=== PATIENT | female | born 1990 | race Caucasian/White ===

== ENCOUNTER 2022-12-10 11:25 | Emergency (ER) | payer OTHER, SELFPAY ==
[2022-12-10 11:28] VITALS: BP 120/78; PULSE 100; RESP 18; TEMP 37.1; O2SAT 100
[2022-12-10 11:49] LABS: Basophils Percent Auto 0.2 % (0.2-1.2); Eosinophils Absolute Auto 0.4 K/mm3 (0-0.3); Hematocrit 39.5 % (37.0-47.0); Hemoglobin 12.3 g/dL (12.0-15.0); Immature Granulocyte Absolute 0.04 K/mm3 (0.00-0.031); Immature Granulocyte Percent A 0.4 % (0-0.5); Lymphocytes Absolute Auto 1.36 K/mm3 (0.9-3.2); Mean Corpuscular HGB Conc 31.1 g/dl (32-36); Mean Corpuscular Hemoglobin 25.6 pg (26-34); Mean Corpuscular Volume 82.3 fl (80-100); Mean Platelet Volume 9.8 fl (7.4-10.4); Monocytes Absolute Auto 0.6 K/mm3 (0.1-0.6); Monocytes Percent Auto 5.7 % (2.6-8.5); Neutrophils Absolute Auto 7.4 K/mm3 (1.3-6.7); Neutrophils Percent Auto 75.7 % (45.5-73.1); Platelet Count Result 444 k/mm3 (150-375); Red Cell Distribution Width 16.2 % (11.5-14.5); White Blood Count 9.7 K/mm3 (4.5-10.0)
[2022-12-10 11:59] LABS: Alanine Aminotransferase 33 U/L (6-35); Albumin Level 4.4 g/dL (3.5-5.1); Alkaline Phosphatase 139 U/L (38-126); Anion Gap 12 mmol/L (8-16); Aspartate Amino Transferase 27 U/L (14-36); Bilirubin,Total 0.6 mg/dL (0.2-1.3); Blood Urea Nitrogen 11 mg/dL (7-17); Calcium 9.1 mg/dL (8.4-10.2); Carbon Dioxide 23 mmol/L (22-30); Chloride 102 mmol/L (98-107); Estimated CRCL calculation 129 ml/min; Estimated Glomerular Filt Rate > 60; Glucose 100 mg/dL (65-110); Lipase 74 U/L (23-300); Sodium 137 mmol/L (137-145)
[2022-12-10 12:06] LABS: Appearance Urine Clear (Clear); Bacteria Urine 1+ /hpf; Bilirubin Urine Negative (Negative); Blood Urine Negative (Negative); Color Urine Dark Yellow (Yellow); Glucose Urine UA Negative (Negative); Ketones Urine 2+ mg/dL (Negative); Leukocyte Esterase Ur Trace LEU/UL (Negative); Nitrate Urine Negative (Negative); Non Pathogenic Casts 0-2; Protein Urine Trace mg/dL (Negative); RBC Urine 0-2 /hpf (0-2); Specific Grav Ur 1.023 (1.001-1.035); Squamous Epithelial Cell Urine Moderate /hpf (Few); WBC Urine 0-5 /hpf
[2022-12-10 12:21] LABS: Add Urine Microscopic? YES
[2022-12-10 14:38] VITALS: BP 139/79; PULSE 82; RESP 18; O2SAT 99
--- NOTE | 2022-12-10 14:41 | ED.NAVMDI ---
HPI - Nausea/Vomiting/Diarrhea General Chief complaint: Nausea/Vomiting/Diarrhea Stated complaint: nausea and vomiting for 5 days Time Seen by Provider: 12/10/22 14:36 Source: patient Mode of arrival: ambulatory Limitations: no limitations History of Present Illness HPI Narrative: 32 y/o female presents with n/v x 5 days. patient states she can't keep anything down. patient went to an urgent care 3 days ago and had a negative covid and flu. patient is 9 weeks but denies vaginal bleeding, abdominal pain or vaginal discharge. patient is . patient denies hx of abdominal issues. MD elicited complaint: nausea, vomiting and abdominal pain Onset (ago): day(s) (5) Associated nausea: Yes Associated abdominal pain: No Location of pain: none Related Data Home Medications Medication Instructions Recorded Confirmed albuterol sulfate 90 mcg/actuation g inhalation 11/16/22 11/16/22 aerosol inhaler escitalopram oxalate 10 mg tablet 10 mg PO 11/16/22 11/16/22 magnesium oxide 400 mg (241.3 mg 400 mg PO 11/16/22 11/16/22 magnesium) tablet metoprolol tartrate 25 mg tablet 25 mg PO 11/16/22 11/16/22 progesterone micronized 200 mg 200 mg PO 11/16/22 11/16/22 capsule Allergies Allergy/AdvReac Type Severity Reaction Status Date / Time latex Allergy Unknown Unknown Unverified 12/10/22 14:39 Review of Systems Review of Systems: All systems reviewed & are unremarkable except as noted in HPI and below Constitutional: Constitutional: Reports no additional constitutional complaints Eyes: Eyes: Reports no additional eye complaints ENT: Reports system reviewed and no additional complaints, except as documented Cardiovascular: Cardiovascular: Reports no additional cardiovascular complaints Respiratory: Respiratory: Reports no additional respiratory complaints Gastrointestinal: Gastrointestinal: Denies abdominal pain, Reports nausea and Reports vomiting Genitourinary: Genitourinary: Reports no additional female genitourinary complaints Musculoskeletal: Musculoskeletal: Reports no additional musculoskeletal complaints Integumentary/Breasts: Skin/Breast: Reports system reviewed and no additional complaints, except as docu Neurologic: Reports system reviewed and no additional complaints, except as documented Psychiatric: Psychiatric: Reports no additional psychiatric complaints Endocrine: Endocrine: Reports no additional endocrine complaints Hematologic/Lymphatic: Hematologic/Lymphatic: Reports no additional hematologic/lymphatic complaints Allergic/Immunologic: Allergic/Immunologic: Reports no additional allergic/immunologic complaints PMFSH Past Medical History Medical History (Updated 12/10/22 @ 15:29 by Osito Aviles APRN) Allergies Anemia Anxiety Asthma PCOS (polycystic ovarian syndrome) Tachycardia Social History Social History (Updated 11/16/22 @ 10:41 by Yazmin Ward Miko) Smoking status: Never smoker Alcohol intake: never Substance use: never Lack of Transportation: No Lack of Food: Never True Current Housing: I Have Housing Concerned About Future Housing: No Difficulty Paying Gas/Electric Bills: YES Difficulty Paying for Meds: No Currently Unemployed: No Education: High School Diploma/GED Difficulty w/ Childcare or Family Care: No Gender identity (if verbalized by the patient): Female Exam Const: General: healthy appearing, no acute distress and alert HENMT: Head: normal to inspection Eyes: Conjunctivae: conjunctivae normal Neck: Neck: normal visual inspection Chest: Chest palpation & inspection: normal inspection of the chest Resp: Effort & Inspection: normal respiratory effort Cardio: Rate: regular rate GI: GI Palp: Yes Soft to palpation and No Tenderness to palpation present (GI) Auscultation: normal bowel sounds Back/Spine/Pelvis: Back: no CVA tenderness Skin: General skin exam: normal color Neuro: General: patient oriented x3 E
[2022-12-10] MEDS: ONDANSETRON INJ 4 MG/2 ML VIAL IV PUSH (14:45)
[2022-12-10] MEDS: SODIUM CHLORIDE 0.9% IV 2,000 ML 999 ML IV CONT (14:45)
[2022-12-10 14:48] VITALS: BP 135/81; PULSE 81; RESP 18; O2SAT 99
[2022-12-10] MEDS: CEPHALEXIN 500 MG CAPSULE PO (15:53)
--- NOTE | 2022-12-10 16:14 | PC.NURSE ---
Pt PO challenged no NV at this time.
[2022-12-10 17:59] VITALS: BP 124/72; PULSE 73; RESP 18; O2SAT 100
== END 2022-12-10 18:01 | disposition home or self-care (01) ==
PROVIDERS: Emergency Medicine; Emergency Provider Nurse Practitioner Family; PCP Physician Assistant
DX: O26.891 Other specified pregnancy related conditions, first trimester (principal); E86.0 Dehydration; R82.4 Acetonuria; R11.2 Nausea with vomiting, unspecified; Z3A.09 9 weeks gestation of pregnancy
CPT/HCPCS: 36415; 80053; 81001; 83690; 85025; 96361; 96374; 99284; A9270; J2405; J7030

== ENCOUNTER 2023-01-22 04:03 | Emergency (ER) | payer OTHER, SELFPAY ==
[2023-01-22] VITALS (16 sets, daily range): BP systolic 108–140; BP diastolic 50–77; PULSE 78–102; RESP 16–25; TEMP 36.4; O2SAT 97–100
[2023-01-22] MEDS: SODIUM CHLORIDE 0.9% IV 2,000 ML 999 ML IV CONT (04:18)
[2023-01-22] MEDS: METOCLOPRAMIDE HCL INJ 10 MG/2 ML VIAL IV PUSH (04:19)
[2023-01-22] MEDS: ONDANSETRON INJ 4 MG/2 ML VIAL IV PUSH (04:19)
[2023-01-22 04:28] LABS: Basophils Percent Auto 0.2 % (0.2-1.2); Eosinophils Absolute Auto 0.2 K/mm3 (0-0.3); Eosinophils Percent Auto 2.7 % (0-4.4); Hematocrit 36.4 % (37.0-47.0); Hemoglobin 11.5 g/dL (12.0-15.0); Immature Granulocyte Absolute 0.05 K/mm3 (0.00-0.031); Immature Granulocyte Percent A 0.6 % (0-0.5); Lymphocytes Absolute Auto 1.63 K/mm3 (0.9-3.2); Lymphocytes Percent Auto 18.3 % (18.3-44.2); Mean Corpuscular HGB Conc 31.6 g/dl (32-36); Mean Corpuscular Hemoglobin 25.3 pg (26-34); Mean Platelet Volume 9.5 fl (7.4-10.4); Monocytes Absolute Auto 0.7 K/mm3 (0.1-0.6); Monocytes Percent Auto 8.1 % (2.6-8.5); Neutrophils Absolute Auto 6.3 K/mm3 (1.3-6.7); Neutrophils Percent Auto 70.1 % (45.5-73.1); Platelet Count Result 419 k/mm3 (150-375); Red Blood Count 4.55 M/mm3 (4.2-5.4); Red Cell Distribution Width 15.1 % (11.5-14.5); White Blood Count 8.9 K/mm3 (4.5-10.0)
[2023-01-22 04:34] LABS: Appearance Urine Clear (Clear); Bacteria Urine None Seen /hpf; Bilirubin Urine Negative (Negative); Blood Urine Negative (Negative); Color Urine Yellow (Yellow); Glucose Urine UA Negative (Negative); Ketones Urine Negative (Negative); Leukocyte Esterase Ur 1+ LEU/UL (Negative); Nitrate Urine Negative (Negative); Protein Urine Negative (Negative); RBC Urine 0-2 /hpf (0-2); Specific Grav Ur 1.004 (1.001-1.035); Squamous Epithelial Cell Urine None seen /hpf (Few); Urobilinogen Urine 0.2 mg/dL (<2.0)
[2023-01-22 04:37] LABS: Alanine Aminotransferase 19 U/L (6-35); Albumin Level 3.8 g/dL (3.5-5.1); Alkaline Phosphatase 119 U/L (38-126); Anion Gap 5 mmol/L (8-16); Aspartate Amino Transferase 19 U/L (14-36); Bilirubin,Total 0.3 mg/dL (0.2-1.3); Blood Urea Nitrogen 7 mg/dL (7-17); Calcium 8.7 mg/dL (8.4-10.2); Carbon Dioxide 26 mmol/L (22-30); Chloride 103 mmol/L (98-107); Estimated CRCL calculation 154 ml/min; Estimated Glomerular Filt Rate > 60; Glucose 115 mg/dL (65-110); Magnesium 1.8 mg/dL (1.6-2.3); Potassium 3.7 mmol/L (3.4-5.0); Sodium 134 mmol/L (137-145)
[2023-01-22 04:43] LABS: Add Urine Microscopic? YES
--- NOTE | 2023-01-22 06:03 | ED.GENADULT ---
HPI - General Adult General Chief complaint: Arrhythmia/Palpitations Stated complaint: Variable HR, vomiting, 15 wks preg Time Seen by Provider: 01/22/23 04:11 History of Present Illness HPI narrative: This is a 32-year-old 034 at 15 weeks presenting ED with nausea and vomiting. She called EMS because she felt like her heart rate was slowing down and speeding up but this seems to be just related to when she was having episodes of vomiting. Patient has had hyperemesis gravidarum past. She has been taking Zofran Reglan but has run out of Zofran. She started having vomiting 2 hours prior to arrival. No other complaints. No abdominal pain, vaginal bleeding or gush of fluids. No urinary symptoms. Related Data Home Medications Medication Instructions Recorded Confirmed albuterol sulfate 90 mcg/actuation g inhalation 11/16/22 11/16/22 aerosol inhaler escitalopram oxalate 10 mg tablet 10 mg PO 11/16/22 11/16/22 magnesium oxide 400 mg (241.3 mg 400 mg PO 11/16/22 11/16/22 magnesium) tablet metoprolol tartrate 25 mg tablet 25 mg PO 11/16/22 11/16/22 progesterone micronized 200 mg 200 mg PO 11/16/22 11/16/22 capsule Allergies Allergy/AdvReac Type Severity Reaction Status Date / Time latex Allergy Unknown Unknown Verified 12/10/22 16:14 [facility] Past Medical History Medical History Allergies Anemia Anxiety Asthma PCOS (polycystic ovarian syndrome) Tachycardia Social History Social History Smoking status: Never smoker Alcohol intake: never Substance use: never Lack of Transportation: No Lack of Food: Never True Current Housing: I Have Housing Concerned About Future Housing: No Difficulty Paying Gas/Electric Bills: YES Difficulty Paying for Meds: No Currently Unemployed: No Education: High School Diploma/GED Difficulty w/ Childcare or Family Care: No Gender identity (if verbalized by the patient): Female Exam Narrative: APPEARANCE: No apparent distress. patient is well Head: atraumatic. EYES: EOMI, NOSE: Atraumatic NECK: Trachea midline RESPIRATORY: No increased rate of breathing CARDIOVASCULAR: RRR, no peripheral edema ABDOMINAL: Non-distended, nontender no guarding rebound MUSCULOSKELETAl: No obvious deformities NEURO: Alert. Moving 4/4 extremities SKIN:: Warm, dry. Normal color PSYCHIATRIC: Normal affect Course Vital Signs Vital signs: Vital Signs Temperature 97.6 F 01/22/23 04:04 Pulse Rate 87 01/22/23 04:04 Respiratory Rate 16 01/22/23 04:04 Blood Pressure 130/77 01/22/23 04:04 Pulse Oximetry 100 01/22/23 04:04 Oxygen Delivery Room Air 01/22/23 04:04 Temperature 97.6 F 01/22/23 04:04 Pulse Rate 86 01/22/23 05:00 Respiratory Rate 22 H 01/22/23 05:00 Blood Pressure 140/74 01/22/23 04:32 Pulse Oximetry 98 01/22/23 05:00 Oxygen Delivery Room Air 01/22/23 04:04 Medical Decision Making MDM Narrative Medical decision making narrative: -Presentation: 32-year-old female presenting ED with chief complaint nausea and vomiting. Patient ran out of Zofran. -DDX includes but is not limited to: Hyperemesis gravidarum, nausea vomiting of , -Co-morbidities complicating care: history of nausea vomiting in , anxiety, AFib -Social determinants of health: patient works as a home health aide, lives with her fiancee and children -External Chart Review: review of an urgent care visit for on December 10 for nausea/vomiting -Hx from independent Sources: EMS -Discussion of Management/Consultants: none -Independent interpretation of studies: CBC was normal. Metabolic panel was unremarkable. Urine had no ketones. +1 leuk esterase and 6-10 white blood cells. No bacteria or nitrites. Patient has no urinary symptoms. Dx tests considered but not ordered: None -Procedures: Ob point of c
== END 2023-01-22 06:42 | disposition home or self-care (01) ==
PROVIDERS: Emergency Provider Emergency Medicine; PCP Physician Assistant
DX: O21.9 Vomiting of pregnancy, unspecified (principal); O99.012 Anemia complicating pregnancy, second trimester; D64.9 Anemia, unspecified; O99.512 Diseases of the respiratory system complicating pregnancy, second trimester; J45.909 Unspecified asthma, uncomplicated; O99.282 Endocrine, nutritional and metabolic diseases complicating pregnancy, second trimester; E28.2 Polycystic ovarian syndrome; O99.342 Other mental disorders complicating pregnancy, second trimester; F41.9 Anxiety disorder, unspecified; Z3A.15 15 weeks gestation of pregnancy
CPT/HCPCS: 36415; 80053; 81001; 83735; 85025; 87086; 87088; 96361; 96374; 96375; 99284; J2405; J2765; J7030

== ENCOUNTER 2023-02-10 16:39 | Emergency (ER) | payer OTHER, SELFPAY ==
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
[2023-02-10 16:36] VITALS: BP 126/64; PULSE 92; RESP 20; TEMP 36.8; O2SAT 100
[2023-02-10 16:43] VITALS: PULSE 96; RESP 18; O2SAT 100
--- NOTE | 2023-02-10 17:16 | ECG_ITS ---
Measurements Intervals [place] Rate: 90 P: 21 UT: 126 QRS: -1 QRSD: 90 T: 19 QT: 350 QTc: 429 Interpretive Statements SINUS RHYTHM MINIMAL ST DEPRESSION [0.025+ mV ST DEPRESSION] NO PREVIOUS ECG AVAILABLE FOR COMPARISON Electronically Signed On 02-11-2023 9:37:48 CDT by Margareth Rodriguez M.D.
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
[2023-02-10 17:22] VITALS: O2SAT 100
[2023-02-10] MEDS: ACETAMINOPHEN 500 MG TABLET 1000 MG PO (17:33)
[2023-02-10 18:34] VITALS: BP 128/63; PULSE 81; RESP 24; O2SAT 100
== END 2023-02-10 18:54 | disposition home or self-care (01) ==
PROVIDERS: Emergency Provider Physician Assistant; PCP Physician Assistant
DX: O9A.212 Injury, poisoning and certain other consequences of external causes complicating pregnancy, second trimester (principal); R07.89 Other chest pain; O99.412 Diseases of the circulatory system complicating pregnancy, second trimester; I48.91 Unspecified atrial fibrillation; O99.512 Diseases of the respiratory system complicating pregnancy, second trimester; J45.909 Unspecified asthma, uncomplicated; O99.282 Endocrine, nutritional and metabolic diseases complicating pregnancy, second trimester; E28.2 Polycystic ovarian syndrome; O99.342 Other mental disorders complicating pregnancy, second trimester; F41.9 Anxiety disorder, unspecified; Z86.2 Personal history of diseases of the blood and blood-forming organs and certain disorders involving the immune mechanism; Z3A.18 18 weeks gestation of pregnancy; V43.52XA Car driver injured in collision with other type car in traffic accident, initial encounter
CPT/HCPCS: 36415; 71045; 85460; 86850; 86900; 86901; 93005; 99283; A9270

== ENCOUNTER 2023-05-25 00:37 | Emergency (ER) | payer OTHER, SELFPAY ==
--- NOTE | ~2023-05-25 | XR_ITS ---
Clinical Indication: Chest pain PA and lateral views of the chest: Comparison: 02/10/2023 Findings: The lungs are clear, without evidence of focal consolidation or pleural effusion. Cardiome diastinal silhouette is within normal limits. Bones and soft tissues are unremarkable. Impression: Normal chest. Reviewed, dictated and finalized at location . Impression: Normal chest.
--- NOTE | 2023-05-25 00:46 | ECG_ITS ---
Measurements Intervals [place] Rate: 111 P: 62 VA: 173 QRS: 4 QRSD: 89 T: 30 QT: 345 QTc: 469 Interpretive Statements SINUS TACHYCARDIA BORDERLINE ST-T WAVE ABNORMALITY- INF/HIGH LAT LEADS ABNORMAL ECG COMPARED TO ECG 02/10/2023 17:41:50 SINUS TACHYCARDIA NOW PRESENT Electronically Signed On 05-25-2023 6:39:15 CDT by Marc Gotti D.O.
[2023-05-25 00:54] VITALS: BP 137/76; PULSE 113; RESP 18; TEMP 36.7; O2SAT 99
[2023-05-25 01:00] LABS: Basophils Percent Auto 0.4 % (0.2-1.2); Eosinophils Absolute Auto 0.3 K/mm3 (0-0.3); Eosinophils Percent Auto 3.3 % (0-4.4); Hematocrit 30.2 % (37.0-47.0); Hemoglobin 9.3 g/dL (12.0-15.0); Immature Granulocyte Percent A 1.2 % (0-0.5); Lymphocytes Absolute Auto 1.59 K/mm3 (0.9-3.2); Lymphocytes Percent Auto 18.8 % (18.3-44.2); Mean Corpuscular HGB Conc 30.8 g/dl (32-36); Mean Corpuscular Hemoglobin 24.5 pg (26-34); Mean Corpuscular Volume 79.5 fl (80-100); Mean Platelet Volume 9.1 fl (7.4-10.4); Monocytes Absolute Auto 0.8 K/mm3 (0.1-0.6); Monocytes Percent Auto 9.8 % (2.6-8.5); Neutrophils Absolute Auto 5.6 K/mm3 (1.3-6.7); Neutrophils Percent Auto 66.5 % (45.5-73.1); Platelet Count Result 404 k/mm3 (150-375); Red Cell Distribution Width 15.3 % (11.5-14.5); White Blood Count 8.5 K/mm3 (4.5-10.0)
[2023-05-25 01:10] LABS: Prothrombin Time 13.2 Seconds (11.1-14.7)
[2023-05-25 01:11] LABS: Alanine Aminotransferase 16 U/L (6-35); Albumin Level 3.4 g/dL (3.5-5.1); Alkaline Phosphatase 141 U/L (38-126); Anion Gap 8 mmol/L (8-16); Aspartate Amino Transferase 19 U/L (14-36); Bilirubin,Total 0.2 mg/dL (0.2-1.3); Blood Urea Nitrogen 15 mg/dL (7-17); Calcium 8.5 mg/dL (8.4-10.2); Carbon Dioxide 23 mmol/L (22-30); Chloride 103 mmol/L (98-107); Estimated CRCL calculation 130 ml/min; Estimated Glomerular Filt Rate > 60; Glucose 116 mg/dL (65-110); Lipase 88 U/L (23-300); Magnesium 1.9 mg/dL (1.6-2.3); Partial Thromboplastin Time 28.6 SECONDS (22.3-36.8); Potassium 3.6 mmol/L (3.4-5.0); Sodium 134 mmol/L (137-145)
[2023-05-25 01:22] LABS: Troponin I < 0.012 ng/mL (0.000-0.034)
[2023-05-25 01:35] VITALS: PULSE 101
[2023-05-25 01:48] VITALS: BP 145/83; PULSE 101; RESP 19; O2SAT 98
[2023-05-25] MEDS: MAG HYDROX/AL HYDROX/SIMETH 30 ML UDC PO (03:28)
[2023-05-25 03:43] VITALS: BP 121/60; PULSE 97
[2023-05-25 03:46] VITALS: BP 124/65; PULSE 92; RESP 16; O2SAT 99
--- NOTE | 2023-05-25 03:46 | ED.GENADULT ---
HPI - General Adult General Chief complaint: Chest Pain Stated complaint: elevated heart rate, chest pain Time Seen by Provider: 05/25/23 02:47 History of Present Illness HPI narrative: Patient here 3-year-old female presents emerged department with chief complaint of palpitations and chest discomfort. Patient reports that she has history of atrial fibrillation and reports that she also is currently over 30 weeks patient states that this evening she felt as though her heart was beating fast and used a pulse oximeter and her heart rate was in the 130s. Patient reports that she had a feeling of indigestion while this was ongoing and reports the symptoms were not improved by anything. The patient denies syncope reports also that she felt as though the baby was not moving as much as it normally does. Related Data Home Medications Medication Instructions Recorded Confirmed albuterol sulfate 90 mcg/actuation g inhalation 11/16/22 11/16/22 aerosol inhaler escitalopram oxalate 10 mg tablet 10 mg PO 11/16/22 11/16/22 magnesium oxide 400 mg (241.3 mg 400 mg PO 11/16/22 11/16/22 magnesium) tablet metoprolol tartrate 25 mg tablet 25 mg PO 11/16/22 11/16/22 progesterone micronized 200 mg 200 mg PO 11/16/22 11/16/22 capsule Allergies Allergy/AdvReac Type Severity Reaction Status Date / Time latex Allergy Unknown Unknown Verified 05/25/23 00:37 Review of Systems Review of Systems: A 10 system review of systems was completed on the patient and is negative except for what is stated in the HPI. Nursing and ancillary documentation was reviewed. PMFSH Past Medical History Medical History Allergies Anemia Anxiety Asthma PCOS (polycystic ovarian syndrome) Tachycardia Social History Social History Smoking status: Never smoker Alcohol intake: never Substance use: never Lack of Transportation: No Lack of Food: Never True Current Housing: I Have Housing Concerned About Future Housing: No Difficulty Paying Gas/Electric Bills: YES Difficulty Paying for Meds: No Currently Unemployed: No Education: High School Diploma/GED Difficulty w/ Childcare or Family Care: No Gender identity (if verbalized by the patient): Female Exam Narrative: GENERAL: Well-appearing, well-nourished, and in no acute distress. HEAD: Normocephalic, atraumatic. EYES: PERRLA and EOMI. ENT: Nares clear, no rhinorrhea or epistaxis. Mucous membranes moist. NECK: Supple. CHEST: Clear to auscultation. No respiratory distress. HEART: Regular rate and rhythm. No murmur heard. Normal peripheral pulses. ABDOMEN: Soft, nontender, nondistended, normal active bowel sounds. Gravid abdomen EXTREMITIES: Normal range of motion. No edema. SKIN: Warm, dry, no rash. NEURO: No focal deficits. Alert and oriented x3. PSYCH: Normal mood and affect. Course Vital Signs Vital signs: Vital Signs Temperature 36.7 C 05/25/23 00:54 Pulse Rate 113 H 05/25/23 00:54 Respiratory Rate 18 05/25/23 00:54 Blood Pressure 137/76 05/25/23 00:54 Pulse Oximetry 99 05/25/23 00:54 Oxygen Delivery Room Air 05/25/23 00:54 Temperature 36.7 C 05/25/23 00:54 Pulse Rate 97 05/25/23 03:43 Respiratory Rate 18 05/25/23 00:54 Blood Pressure 121/60 05/25/23 03:43 Pulse Oximetry 99 05/25/23 00:54 Oxygen Delivery Room Air 05/25/23 00:54 Medical Decision Making [facility] Narrative Medical decision making narrative: Differential diagnosis includes dysrhythmia, palpitations, electrolyte abnormality, Upon arrival patient vital signs heart rate was 113 patient had a heart rate of 97 since she been in the room. Laboratory studies were obtained showed a CBC with a white count of 8.5 hemoglobin 9.3 electrolytes were within normal limits troponin was less than 0.012 magnesium was 1.9 EKG sh
== END 2023-05-25 04:10 | disposition home or self-care (01) ==
PROVIDERS: Emergency Provider Emergency Medicine; PCP Physician Assistant
DX: O99.891 Other specified diseases and conditions complicating pregnancy (principal); R00.2 Palpitations; R07.89 Other chest pain; R00.0 Tachycardia, unspecified; O99.413 Diseases of the circulatory system complicating pregnancy, third trimester; I48.91 Unspecified atrial fibrillation; O99.513 Diseases of the respiratory system complicating pregnancy, third trimester; J45.909 Unspecified asthma, uncomplicated; O99.283 Endocrine, nutritional and metabolic diseases complicating pregnancy, third trimester; E28.2 Polycystic ovarian syndrome; O99.013 Anemia complicating pregnancy, third trimester; D64.9 Anemia, unspecified; O99.343 Other mental disorders complicating pregnancy, third trimester; F41.9 Anxiety disorder, unspecified; Z3A.32 32 weeks gestation of pregnancy
CPT/HCPCS: 36415; 71046; 80053; 83690; 83735; 84484; 85025; 85610; 85730; 93005; 99284; A9270

== ENCOUNTER 2023-07-14 20:12 | Emergency (ER) | payer OTHER, SELFPAY ==
--- NOTE | ~2023-07-14 | XR_ITS ---
EXAMINATION: XR chest 2V 07/14/2023 21:17 INDICATION: New onset of chest pain PROCEDURE: 2 view chest COMPARISON: 05/25/2023 FINDINGS: The lungs are clear. The cardiomediastinal silhouette is within normal limits. There are no pleural effusions. There is no pneumothorax suspected. IMPRESSION: 1: NO ACUTE CARDIOPULMONARY DISEASE. Reviewed, dictated and finalized at location A.
[2023-07-14 20:35] VITALS: BP 147/84; PULSE 94; RESP 18; TEMP 36.6; O2SAT 100
--- NOTE | 2023-07-14 20:41 | ECG_ITS ---
Measurements Intervals [place] Rate: 88 P: 58 CA: 171 QRS: -6 QRSD: 86 T: 24 QT: 313 QTc: 380 Interpretive Statements SINUS RHYTHM DELAYED PRECORDIAL R/S TRANSITION BORDERLINE ECG COMPARED TO ECG 05/25/2023 00:44:30 SINUS RHYTHM NOW PRESENT Electronically Signed On 07-15-2023 9:22:05 CDT by Marc Gotti D.O.
[2023-07-14 21:14] LABS: Basophils Percent Auto 0.3 % (0.2-1.2); Eosinophils Absolute Auto 0.4 K/mm3 (0-0.3); Eosinophils Percent Auto 5.4 % (0-4.4); Hematocrit 37.7 % (37.0-47.0); Hemoglobin 11.1 g/dL (12.0-15.0); Immature Granulocyte Absolute 0.02 K/mm3 (0.00-0.031); Immature Granulocyte Percent A 0.3 % (0-0.5); Lymphocytes Absolute Auto 1.53 K/mm3 (0.9-3.2); Lymphocytes Percent Auto 19.4 % (18.3-44.2); Mean Corpuscular HGB Conc 29.4 g/dl (32-36); Mean Corpuscular Hemoglobin 22.8 pg (26-34); Mean Corpuscular Volume 77.4 fl (80-100); Mean Platelet Volume 9.2 fl (7.4-10.4); Monocytes Absolute Auto 0.6 K/mm3 (0.1-0.6); Monocytes Percent Auto 7.2 % (2.6-8.5); Neutrophils Absolute Auto 5.3 K/mm3 (1.3-6.7); Neutrophils Percent Auto 67.4 % (45.5-73.1); Platelet Count Result 572 k/mm3 (150-375); Red Blood Count 4.87 M/mm3 (4.2-5.4); Red Cell Distribution Width 16.9 % (11.5-14.5); White Blood Count 7.9 K/mm3 (4.5-10.0)
[2023-07-14 21:26] LABS: Alanine Aminotransferase 32 U/L (6-35); Albumin Level 4.1 g/dL (3.5-5.1); Alkaline Phosphatase 163 U/L (38-126); Anion Gap 10 mmol/L (8-16); Aspartate Amino Transferase 22 U/L (14-36); Bilirubin,Total 0.4 mg/dL (0.2-1.3); Blood Urea Nitrogen 13 mg/dL (7-17); Calcium 10.6 mg/dL (8.4-10.2); Carbon Dioxide 23 mmol/L (22-30); Chloride 104 mmol/L (98-107); Estimated CRCL calculation 127 ml/min; Estimated Glomerular Filt Rate > 60; Glucose 108 mg/dL (65-110); Lipase 122 U/L (23-300); Sodium 137 mmol/L (137-145)
[2023-07-14 21:30] LABS: INR 0.9; Prothrombin Time 12.9 Seconds (11.1-14.7)
[2023-07-14 21:31] LABS: Partial Thromboplastin Time 31.7 SECONDS (22.3-36.8)
[2023-07-14 21:34] LABS: Anisocytosis 1+ (NORMAL); Platelet Estimate Increased (Adequate)
[2023-07-14 21:35] LABS: Schistocytes None Seen (NORMAL)
[2023-07-14 21:37] LABS: Troponin I < 0.012 ng/mL (0.000-0.034)
[2023-07-14 23:01] VITALS: PULSE 84
[2023-07-14 23:02] VITALS: BP 134/72; PULSE 89; RESP 20; TEMP 36.5; O2SAT 100
--- NOTE | 2023-07-14 23:22 | ED.GENADULT ---
HPI - General Adult General Chief complaint: Unspecified Stated complaint: post high blood pressure Time Seen by Provider: 07/14/23 23:06 History of Present Illness HPI narrative: Patient is a 33-year-old female, 4 days , history of paroxismal afib here with dizziness and high blood pressure. Patient states that earlier today she began feeling a headache and some dizziness. She notes that she checked her blood pressure at home and it was in the 140s which prompted her to come into the emergency department for evaluation. Patient notes she had some high blood pressures during the time of her delivery but is was otherwise uncomplicated. No prior history of preeclampsia. She states she has some mild abdominal cramping and her vaginal bleeding has significantly subsided. She did take some ibuprofen earlier today for her symptoms. She denies any prior cardiac history. She notes that this time that her dizziness has subsided, she has mild headache at this time but otherwise is feeling back to normal. Related Data Home Medications Medication Instructions Recorded Confirmed albuterol sulfate 90 mcg/actuation g inhalation 11/16/22 11/16/22 aerosol inhaler escitalopram oxalate 10 mg tablet 10 mg PO 11/16/22 11/16/22 magnesium oxide 400 mg (241.3 mg 400 mg PO 11/16/22 11/16/22 magnesium) tablet metoprolol tartrate 25 mg tablet 25 mg PO 11/16/22 11/16/22 progesterone micronized 200 mg 200 mg PO 11/16/22 11/16/22 capsule Allergies Allergy/AdvReac Type Severity Reaction Status Date / Time latex Allergy Unknown Unknown Verified 05/25/23 00:37 Review of Systems Review of Systems: All systems reviewed & are unremarkable except as noted in HPI and below PMFSH Past Medical History Medical History Allergies Anemia Anxiety Asthma PCOS (polycystic ovarian syndrome) Tachycardia Social History Social History Smoking status: Never smoker Alcohol intake: never Substance use: never Lack of Transportation: No Lack of Food: Never True Current Housing: I Have Housing Concerned About Future Housing: No Difficulty Paying Gas/Electric Bills: YES Difficulty Paying for Meds: No Currently Unemployed: No Education: High School Diploma/GED Difficulty w/ Childcare or Family Care: No Gender identity (if verbalized by the patient): Female Exam Narrative: GENERAL: Well-appearing, well-nourished, and in no acute distress. HEAD: Normocephalic, atraumatic. EYES: PERRLA and EOMI. ENT: Nares clear. Mucous membranes moist. NECK: Supple. CHEST: Clear to auscultation. No respiratory distress. HEART: Regular rate and rhythm. Normal peripheral pulses. ABDOMEN: Soft, nontender, nondistended. EXTREMITIES: Normal range of motion. No edema. SKIN: Warm, dry, no rash. NEURO: No focal deficits. Alert and oriented x3. PSYCH: Normal mood and affect. Course Course Emergency Course: Chart review performed, patient here with high blood pressure and dizziness. She is 4 days , did not appear to deliver here as it is not on file in our system. Initial triage BP 147/84, EKG in normal sinus. Patient seen evaluated, nontoxic appearing. Blood pressure has returned to normal and she is largely asymptomatic aside from a mild headache. Will give Tylenol. Triage workup reviewed, CBC within normal limits, electrolytes and renal function normal. Troponin negative. Chest x-ray unremarkable. Multiple repeat blood pressures within normal range. Given normal blood pressure and largely symptomatic with a negative cardiac workup I believe patient can be discharged home with outpatient follow-up. I do not believe she currently is preeclamptic. She is not in afib. She is advised to follow her blood pressures closely and contact her primary care doctor and OBGYN Monday mo
[2023-07-14] MEDS: ACETAMINOPHEN 500 MG TABLET 1000 MG PO (23:36)
[2023-07-14 23:37] VITALS: BP 128/74; PULSE 91; RESP 19; O2SAT 98
[2023-07-15 00:30] LABS: Troponin I < 0.012 ng/mL (0.000-0.034)
== END 2023-07-15 00:21 | disposition home or self-care (01) ==
PROVIDERS: Emergency Provider Student in an Organized Health Care Education/Training Program; PCP Physician Assistant
DX: O99.893 Other specified diseases and conditions complicating puerperium (principal); R51.9 Headache, unspecified; O99.43 Diseases of the circulatory system complicating the puerperium; I48.0 Paroxysmal atrial fibrillation; O90.81 Anemia of the puerperium; D64.9 Anemia, unspecified; O99.285 Endocrine, nutritional and metabolic diseases complicating the puerperium; E28.2 Polycystic ovarian syndrome; O99.345 Other mental disorders complicating the puerperium; F41.9 Anxiety disorder, unspecified; R94.31 Abnormal electrocardiogram [ECG] [EKG]
CPT/HCPCS: 36415; 71046; 80053; 83690; 84484; 85025; 85610; 85730; 93005; 99284; A9270